=== PATIENT | male | born 1945 | race Caucasian/White ===

== ENCOUNTER 2017-12-13 15:42 | Emergency (ER) | payer OTHER ==
--- NOTE | 2017-12-13 17:49 | RAD REPORT ---
EXAM DESCRIPTION: RAD - Hand Right 3 View - 12/13/2017 4:32 pm CLINICAL HISTORY: Right hand pain status post injury FINDINGS: The second proximal phalanx is dislocated medially. An oblique lucency is present within the base of second metacarpal. This may represent a prominent tr abecula or fracture. If clinically indicated further evaluation with CT could be obtained
[2017-12-13] MEDS ORDERED: BUPIVACAINE 0.5% PF 10 ML VIAL ONE (18:00)
--- NOTE | 2017-12-13 19:15 | EDPHYS ---
Physician Documentation [facility] Name: Stalin Baliey Age: 72 yrs Sex: Male : 1945 Arrival Date: 12/13/2017 Time: 15:47 Bed 10 Private MD: MIC[place], [place] ED Physician Sean Gold HPI: 12/13 16:33 This 72 yrs old Male presents to ER via Ambulatory with complaints of Finger jmm Injury. 16:33 The patient or guardian reports deformity, injury. The complaints affect the dorsal jmm aspect of proximal phalanx of right index finger. Onset: The symptoms/episode began/occurred acutely, 5 day(s) ago. Associated signs and symptoms: Pertinent positives: swelling, decreased range of motion. This is a 72 year old male with a history of hlp that presents to the ED with right 2nd finger swelling and pain beginning after he slipped and fell 5 days ago. patient states he is currently taking hydrocodone for pain. denies other injury. Historical: - Allergies: 15:54 No Known Allergies; sv - Home Meds: 15:54 Vicodin ES Oral [Active]; atorvastatin oral oral [Active]; Aspirin Oral [Active]; sv - PMHx: 15:54 High Cholesterol; Myocardial infarction; sv - PSHx: 15:54 cardiac stents; sv - Immunization history:: Adult Immunizations up to date. - Social history:: Smoking status: Patient/guardian denies using tobacco. - Ebola Screening: : No symptoms or risks identified at this time. ROS: 16:33 Constitutional: Negative for fever, chills, and weight loss, Cardiovascular: Negative jmm for chest pain, palpitations, and edema, Respiratory: Negative for shortness of breath, cough, wheezing, and pleuritic chest pain, Abdomen/GI: Negative for abdominal pain, nausea, vomiting, diarrhea, and constipation, Back: Negative for injury and pain, : Negative for injury, bleeding, discharge, and swelling. 16:33 MS/extremity: Positive for pain, swelling. 16:33 Neuro: Negative for weakness. 16:33 All other systems are negative. Exam: 16:33 Head/Face: atraumatic. jmm 16:33 Eyes: EOMI, no conjunctival erythema appreciated 16:33 Constitutional: The patient appears in no acute distress, alert, awake. 16:33 Cardiovascular: Rate: normal, Edema: is not appreciated. 16:33 Respiratory: the patient does not display signs of respiratory distress, Respirations: normal. 16:33 Abdomen/GI: Inspection: abdomen appears normal, distension, is not seen. 16:33 Back: ROM is normal. 16:33 Musculoskeletal/extremity: swelling is noted to the right 2nd proximal phalanx. decreased rom appreciated, < 2 sec distal cap refill appreciated. . 16:33 Skin: Appearance: Color: normal in color. 16:33 Neuro: Orientation: is normal, Mentation: is normal, Memory: is normal, Gait: is steady. Vital Signs: 15:54 BP 116 / 89; Pulse 101; Resp 18; Temp 97.7; Pulse Ox 98% ; Weight 74.39 kg; Height 5 sv ft. 7 in. (170.18 cm); Pain 1/10; 19:22 BP 121 / 87; Pulse 105; Resp 16; Pulse Ox 99% on R/A; mb3 15:54 Body Mass Index 25.69 (74.39 kg, 170.18 cm) sv Procedures: 18:[address] [facility] 18:40 Splinting: Splint applied to right hand using volar splint, batsheva tape. applied by krystle nurse. Examined by me, post splint application: neurovascular intact, 2+ distal pulses palpable, brisk capillary refill noted, Patient tolerated well. MDM: 16:23 Patient medically screened. [facility] 18:40 Data reviewed: vital signs, nurses notes, radiologic studies, plain films. Counseling: winston I had a detailed discussion with the patient and/or guardian regarding: the historical points, exam findings, and any diagnostic results supporting the discharge/admit diagnosis, the presence of at least one elevated blood pressure reading (>120/80) during this emergency department visit, radiology results, the need for outpatient follow up, to return to the emergency department if symptoms worsen or persist or if there are any questions or concerns that arise at home. 18:40 Response to treatment: the patient's symptoms have mildly improved after treatment. ED jm course: I was unable to reduce the patient's MCP joint. Patient is given follow up information on orthopedics and hand surgery for reevaluation. Patient understood and agrees with the plan of care. . 12/13 15:56 Order name: Hand Right 3 View XRAY; Complete Time: 18:40 sv 12/13 18:42 Order name: Volar Wrist Splint; Complete Time: 19:21 [facility] Administered Medications: 18:10 Drug: Marcaine (0.5 %) 10 ml Volume: 10 ml; Route: Infiltration; mb3 19:26 Follow up: Response: No adverse reaction mb3 Disposition: 12/13/17 19:14 Discharged to Home. Impression: Dislocation of metacarpophalangeal joint of right index finger. - Condition is Stable. - Discharge Instructions: Finger Dislocation. - Prescriptions for Tylenol- Codeine #3 300-30 mg Oral Tablet - take 2 tablets by ORAL route every 6 hours As needed; 12 tablet. - Medication Reconciliation Form, Thank You Letter, Antibiotic Education, Prescription Opioid Use form. - Follow up: Kemar Link MD; When: 2 - 3 days; Reason: Continuance of care. Follow up: Jayesh Bentley MD; When: 2 - 3 days; Reason: Recheck today's complaints, Continuance of care. Addendum: 12/15/2017 07:02 Co-signature as Attending Physician, Sean Gold MD. r n Signatures: Dispatcher [employer] Smiley Brooks RN RN sv Anderson, Corey, MD MD cha Mickail, Joel, PA PA [facility] Sean Gold MD MD rn Barnett, Mark, RN RN mb3 Corrections: (The following items were deleted from the chart) 12/13 19:28 19:14 12/13/2017 19:14 Discharged to Home. Impression: Dislocation of mb3 metacarpophalangeal joint of right index finger. Condition is Stable. Forms are Medication Reconciliation Form, Thank You Letter, Antibiotic Education, Prescription Opioid Use. Follow up: Kemar Link; When: 2 - 3 days; Reason: Continuance of care. Follow up: Jayesh Bentley; When: 2 - 3 days; Reason: Recheck today's complaints, Continuance of care. [facility]
--- NOTE | 2017-12-13 19:15 | ER ---
Nurse's Notes [facility] Name: Stalin Bailey Age: 72 yrs Sex: Male : 1945 Arrival Date: 12/13/2017 Time: 15:47 Bed 10 Private MD: MICKEY AREVALO Diagnosis: Dislocation of metacarpophalangeal joint of right index finger Presentation: 12/13 15:50 Presenting complaint: Patient states: Pt tripped and landed on his right 2nd finger on sv . Left hand swelling noted. Transition of care: patient was not received from another setting of care. Onset of symptoms was December 08, 2017. Care prior to arrival: None. 15:50 Method Of Arrival: Ambulatory sv 15:50 Acuity: SUPA 3 sv 19:28 Risk Assessment: Do you want to hurt yourself or someone else? Patient reports no mb3 desire to harm self or others. Initial Sepsis Screen: Does the patient meet any 2 criteria? Yes Does the patient have a suspected source of infection? No. Patient's initial sepsis screen is negative. Triage Assessment: 19:28 General: Appears in no apparent distress. uncomfortable. Injury Description: Deformity mb3 sustained to right hand. Historical: - Allergies: 15:54 No Known Allergies; sv - Home Meds: 15:54 Vicodin ES Oral [Active]; atorvastatin oral oral [Active]; Aspirin Oral [Active]; sv - PMHx: 15:54 High Cholesterol; Myocardial infarction; sv - PSHx: 15:54 cardiac stents; sv - Immunization history:: Adult Immunizations up to date. - Social history:: Smoking status: Patient/guardian denies using tobacco. - Ebola Screening: : No symptoms or risks identified at this time. Screenin:23 Abuse screen: Denies threats or abuse. Nutritional screening: No deficits noted. mb3 Tuberculosis screening: No symptoms or risk factors identified. Fall Risk Fall in past 12 months (25 points). Secondary diagnosis (15 points) No IV (0 pts). Ambulatory Aid- None/Bed Rest/Nurse Assist (0 pts). Gait- Normal/Bed Rest/Wheelchair (0 pts) Mental Status- Oriented to own ability (0 pts). Total Urias Fall Scale indicates Low Risk Score (25-44 pts). Placed close to Nursing Station Frequent Obs/Assesments occuring As available Patient and Family Educated on Fall Prevention Program and strategies. Assessment: 19:21 General: Appears uncomfortable, well groomed, Behavior is calm, cooperative, mb3 appropriate for age. Pain: Complains of pain in right hand. Neuro: No deficits noted. Cardiovascular: No deficits noted. Reports None. Musculoskeletal: Bony deformity noted of dorsal aspect of middle phalanx of right index finger, dorsal aspect of proximal phalanx of right index finger and palmar aspect of proxima; phalanx of right index finger Reports pain in right hand. Vital Signs: 15:54 BP 116 / 89; Pulse 101; Resp 18; Temp 97.7; Pulse Ox 98% ; Weight 74.39 kg; Height 5 sv ft. 7 in. (170.18 cm); Pain 1/10; 19:22 BP 121 / 87; Pulse 105; Resp 16; Pulse Ox 99% on R/A; mb3 15:54 Body Mass Index 25.69 (74.39 kg, 170.18 cm) sv ED Course: 15:47 Patient arrived in ED. mr 15:47 DE, DE is Private Physician. mr 15:52 Triage completed. sv 15:54 Arm band placed on right wrist. sv 15:56 Patient placed in waiting room, Patient notified of wait time. sv 16:07 Krunal Tse PA is PHCP. [facility] 16:07 Sean Gold MD is Attending Physician. m 16:19 Irvin Ryan, CYDNEY is Primary Nurse. mb3 16:32 Hand Right 3 View XRAY In Process Unspecified. EDMS 19:14 Kemar Link MD is Referral Physician. jmm 19:14 Jayesh Bentley MD is Referral Physician. [facility] 19:23 No provider procedures requiring assistance completed. Patient did not have IV access mb3 during this emergency room visit. Ridge wrap to right wrist, PIP of right index finger, MCP of right index finger and MCP of right middle finger Manuel tape dorsal aspect of middle phalanx of right index finger, dorsal aspect of proximal phalanx of right index finger, dorsal aspect of middle phalanx of right middle finger and dorsal aspect of proximal phalanx of right middle finger Orthoglass splint: Volar splint applied on. 19:28 Patient has correct armband on for positive identification. mb3 Administered Medications: 18:10 Drug: Marcaine (0.5 %) 10 ml Volume: 10 ml; Route: Infiltration; mb3 19:26 Follow up: Response: No adverse reaction mb3 Outcome: 19:14 Discharge ordered by . winston 19:27 Discharged to home ambulatory. mb3 19:27 Condition: stable 19:27 Discharge instructions given to patient, Instructed on discharge instructions, follow up and referral plans. medication usage, Demonstrated understanding of instructions, follow-up care, medications, splint care, Prescriptions given X 1. 19:28 Patient left the ED. mb3 Signatures: Dispatcher [employer] Smiley Brooks, RN RN Krunal Golden PA PA jmm Rivera, Maria mr Barnett, Mark, RN RN mb3
== END 2017-12-13 19:28 | disposition home or self-care (01) ==
LOC: ER 15:42
PROC: 2W3JX1Z Immobilization of Right Finger using Splint (ICD-10-PCS; principal; 2017-12-13)
DX: S63.260A Dislocation of metacarpophalangeal joint of right index finger, initial encounter (principal); I25.2 Old myocardial infarction; E78.00 Pure hypercholesterolemia, unspecified; W01.0XXA Fall on same level from slipping, tripping and stumbling without subsequent striking against object, initial encounter; Y93.9 Activity, unspecified; Y92.9 Unspecified place or not applicable; Y99.9 Unspecified external cause status
CPT/HCPCS: 99284